=== PATIENT | female | born 1955 | race Two or more races ===

== ENCOUNTER → 2024-01-01 | Outpatient (CLI) | payer MEDICARE, SELFPAY | END | disposition home or self-care (01) | PROVIDERS: Referring Provider Urology; Visit Provider Urology | DX: N30.00 Acute cystitis without hematuria (principal) ==

== ENCOUNTER → 2024-04-10 | Outpatient (CLI) | payer MEDICARE, SELFPAY ==
--- NOTE | 2024-04-10 11:46 | US_ITS ---
STUDY: RENAL ULTRASOUND - COMPLETE REASON FOR EXAM: Female, 68 years old. Other chronic cystitis without hematuria TECHNIQUE: Ultrasound evaluation of the kidneys was performed with real-time and static davila-scale imaging. COMPARISON: None. FINDINGS: RIGHT KIDNEY: Normal location of the right kidney, which is normal in size. The right kidney measures 10.9 cm. There is a normal cortex of the right kidney. The renal cortex measures 1.7 cm. There is no right renal mass or cyst. There are no right renal calculi. There is no right hydronephrosis. DISTAL RIGHT URETER: There is non-visualization of the distal right ureter. There is no demonstrated right ureterovesical junction calculus. There is a visualized right ureteral jet. LEFT KIDNEY: Normal location of the left kidney, which is normal in size. The left kidney measures 11.3 cm. There is a normal cortex of the left kidney. The renal cortex measures 2.0 cm. There is no left renal mass or cyst. There are no left renal calculi. There is no left hydronephrosis. DISTAL LEFT URETER: There is non-visualization of the distal left ureter. There is no demonstrated left ureterovesical junction calculus. There is a visualized left ureteral jet. BLADDER: The distended urinary bladder has a volume of 427 ml. The empty urinary bladder has a volume of 105 ml. There is a normal wall thickness of the distended urinary bladder. There is no demonstrated mass within the urinary bladder. There are no demonstrated bladder calculi. US/Kidney and Bladder IMPRESSION: Normal ultrasound of the kidneys and urinary bladder. Electronically Signed: Scott Mcnamara MD at 18:41 EDT ,
== END | disposition home or self-care (01) ==
PROVIDERS: PCP Nurse Practitioner Family; Referring Provider Urology; Visit Provider Urology
DX: N30.20 Other chronic cystitis without hematuria (principal); R35.0 Frequency of micturition; R35.1 Nocturia
CPT/HCPCS: 76770